=== PATIENT | male | born 1990 | race African-American/Black ===

== ENCOUNTER → 2020-05-04 | Outpatient (CLI) | payer SELFPAY ==
[2016-05-17 02:20] VITALS: BP 142/84
[~2020-05-04] MED LIST: AMOXICILLIN875 MG PO; FLEXERIL 1010 MG/TAB PO; NAPROSYN500 M1 PO; NORCO 325 MG-51 TA1 PO
== END ==
LOC: LAB 13:01
DX: R05 Cough (principal); M79.10 Myalgia, unspecified site; R51.9 Headache, unspecified; R09.89 Other specified symptoms and signs involving the circulatory and respiratory systems; R19.7 Diarrhea, unspecified; R53.83 Other fatigue; Z20.828 Contact with and (suspected) exposure to other viral communicable diseases

== ENCOUNTER 2021-03-31 16:30 | Emergency (ER) | payer SELFPAY ==
[~2021-03-31] VITALS: Ht 180.3 cm; Wt 67.3 kg
[2021-03-31] MEDS ORDERED: CEPHALEXIN500 M1 PO (19:00)
[2021-03-31 19:32] VITALS: BP 129/68
== END 2021-03-31 19:32 | disposition home or self-care (01) ==
LOC: ED 16:30
DX: S61.216A Laceration without foreign body of right little finger without damage to nail, initial encounter (principal); S61.210A Laceration without foreign body of right index finger without damage to nail, initial encounter; W26.8XXA Contact with other sharp object(s), not elsewhere classified, initial encounter; Y93.89 Activity, other specified
CPT/HCPCS: 90715; J1885